=== PATIENT | male | born 1980 | race Caucasian/White ===

== ENCOUNTER 2016-07-01 08:46 | Emergency (ER) | payer SELFPAY ==
--- NOTE | 2016-07-01 09:50 | ER Document Report ---
HPI - HPI Patient complains to provider of: left arm pain Onset: Other - 3 weeks Onset/Duration: Persistent Quality of pain: Achy Severity: Severe Pain Level: 4 Context: Patient presents to the emergency department with left shoulder pain. Patient reports he started hurting approximately 3 weeks ago. He denies trauma. He reports increased pain when he just rests the arm leaving it hanging to his side. He he reports years ago he dislocated his shoulder fixed it himself and never followed up with anybody. He denies other symptoms such as fever vomiting diarrhea. He reports he has taken a couple of hydrocodone that his father gave him, as well as Motrin and it didn't help pain. He reports no pain when lifting the arm over his head only pain when he leaves it hanging by his side. Patient is right-hand dominant works at [employer]. Associated Symptoms: None Exacerbated by: Other - hanging to his side Relieved by: Denies Similar symptoms previously: No Recently seen / treated by doctor: No - DERM Skin Color: Normal Past Medical History - General Information source: Patient - Social History Smoking Status: Current Every Day Smoker Cigarette use (# per day): Yes Frequency of alcohol use: None Drug Abuse: None Occupation: [employer] Lives with: Family Family History: Malignancy - mom breast cancer Patient has suicidal ideation: No Patient has homicidal ideation: No - Medical History Medical History: Negative Renal/ Medical History: Denies: Hx Peritoneal Dialysis Surgical Hx: Negative Vertical Provider Document - CONSTITUTIONAL Agree With Documented VS: Yes Exam Limitations: No Limitations General Appearance: WD/WN, No Apparent Distress - INFECTION CONTROL TRAVEL OUTSIDE OF THE [place] IN LAST 30 DAYS: No - HEENT HEENT: Atraumatic, Normocephalic - NECK Neck: Normal Inspection, Supple. negative: Lymphadenopathy-Left, Lymphadenopathy-Right - RESPIRATORY Respiratory: Breath Sounds Normal, No Respiratory Distress O2 Sat by Pulse Oximetry: 98 - CARDIOVASCULAR Cardiovascular: Regular Rate, Regular Rhythm - MUSCULOSKELETAL/EXTREMETIES Musculoskeletal/Extremeties: MAEW, FROM, Tender - Left deltoid posterior area tender to palpation and no erythema no swelling no warmth, no obvious deformity. Good radial pulse brisk cap refill, full range of motion without complications or problems or c/o pain - NEURO Level of Consciousness: Awake, Alert, Appropriate Motor/Sensory: No Motor Deficit - DERM Integumentary: Warm, Dry Adult Front & Back Diagram: 1 - reports pain when arm is hanging by his side Course - Re-evaluation Re-evalutation: 07/01/16 Patient instructed on negative x-ray. Instructed on cleaning for 2 days only for comfort because he has pain when he hangs his arm to his side. He was also instructed on medications and importance of follow-up with orthopedics for evaluation. He verbalized understanding to all instructions. - Vital Signs Vital signs: Temp Pulse Resp BP Pulse Ox 98.4 F 98 20 121/92 H 98 07/01/16 08:58 07/01/16 08:58 07/01/16 08:58 07/01/16 08:58 07/01/16 08:58 - Diagnostic Test Radiology reviewed: Image reviewed, Reports reviewed - COMPLETED DATE/TIME: 07/01 9:40 am REASON FOR STUDY: pain COMPARISON: None. NUMBER OF VIEWS: Three views. TECHNIQUE: Internal rotation, external rotation, and Y view images acquired of the left shoulder. LIMITATIONS: None. FINDINGS: MINERALIZATION: Normal. BONES: No acute fracture or dislocation. No worrisome bone lesions. Small benign-appearing cyst in the humeral head probably not significant. JOINTS: No dislocation. VISUALIZED LUNGS AND RIBS: No pneumothorax. No rib fracture. SOFT TISSUES: No radiopaque foreign body. OTHER : No other significant finding. TECHNICAL DOCUMENTATION: JOB ID: [id number]- All Rights Reserved RAD/SHOULDER LEFT 2 OR MORE VIEWS IMPRESSION: No significant abnormalities involving the left shoulder. Procedures - Immobilization Left Arm Immobilizer type: Sling Performed by: PCT Post-Proc Neuro Vasc Exam: Unchanged from pre-exam Discharge - Discharge Clinical Impression: Pain in posterior left upper extremity Left shoulder pain Qualifiers: Chronicity: acute Qualified Code(s): M25.512 - Pain in left shoulder Condition: Stable Disposition: HOME, SELF-CARE Instructions: Use of Sart-Tmd-Oxnehjq Ibuprofen ([facility]), Ice Packs ([facility]), Oral Narcotic Medication ([facility]), Sling as Treatment ([facility]) Additional Instructions: *You have been evaluated for left shoulder upper arm pain *Maintain sling for two days only *Rest/Ice/Elevate the arm *Follow up with orthopedics within one week-call for an appointment *Take medication as prescribed- take ibuprofen for mild to moderate pain, take percocet for acute pain *Return to ED for worsening condition, changes, needs Prescriptions: Oxycodone HCl/Acetaminophen [Percocet 5-325 mg Tablet] 1 - 2 tab PO ASDIR PRN # 15 tablet PRN Reason: Referrals: [facility] [Provider Group] - Follow up in 3-5 days
[2016-07-01 10:50] VITALS: BP 119/69
== END 2016-07-01 10:52 | disposition home or self-care (01) ==
LOC: ER 08:46
DX: M79.602 Pain in left arm (principal); M25.512 Pain in left shoulder; F17.210 Nicotine dependence, cigarettes, uncomplicated
CPT/HCPCS: 99283

== ENCOUNTER 2016-09-09 15:32 | Emergency (ER) | payer SELFPAY ==
--- NOTE | 2016-09-09 17:24 | ER Document Report ---
ED GI/ - General Chief Complaint: Groin Injury Stated Complaint: ABSCESS Time Seen by Provider: 09/09/16 16:49 Notes: Patient is a 36-year-old male, current smoker, presents with 2 weeks of a right inguinal mass. He says the mass is painless and is not associated with exertion , defecation or urination. He denies testicular pain, penile discharge, fevers , night sweats, leg pain, numbness, tingling, nausea, vomiting, diarrhea or constipation. TRAVEL OUTSIDE OF THE [place] IN LAST 30 DAYS: No - Related Data Allergies/Adverse Reactions: No Known Allergies Allergy (Verified 09/09/16 16:47) Home Medications: Current Home Medications No Home Medications 09/09/16 [History] Past Medical History - General Information source: Patient - Social History Smoking Status: Current Every Day Smoker Chew tobacco use (# tins/day): No Frequency of alcohol use: None Drug Abuse: None Family History: Malignancy - mom breast cancer Patient has suicidal ideation: No Patient has homicidal ideation: No Renal/ Medical History: Denies: Hx Peritoneal Dialysis Surgical Hx: Negative - Immunizations Hx Diphtheria, Pertussis, Tetanus Vaccination: Yes Review of Systems - Review of Systems Notes: REVIEW OF SYSTEMS: CONSTITUTIONAL: -fevers, -chills EENT: -eye pain, -difficulty swallowing, -nasal congestion CARDIOVASCULAR:-chest pain, -syncope. RESPIRATORY: -cough, -SOB GASTROINTESTINAL: -abdominal pain, - nausea, -vomiting, -diarrhea GENITOURINARY: -dysuria, -hematuria MUSCULOSKELETAL: -back pain, -neck pain SKIN: -rash or skin lesions. HEMATOLOGIC: -easy bruising or bleeding. LYMPHATIC: +right inguinal swollen lymph node NEUROLOGICAL: -altered mental status or loss of consciousness, -headache, - neurologic symptoms PSYCHIATRIC: -anxiety, -depression. ALL OTHER SYSTEMS REVIEWED AND NEGATIVE. Physical Exam - Vital signs Vitals: Temp Pulse Resp BP Pulse Ox 98.3 F 83 20 128/74 H 97 09/09/16 15:50 09/09/16 15:50 09/09/16 15:50 09/09/16 15:50 09/09/16 15:50 - Notes Notes: PHYSICAL EXAMINATION: GENERAL: Well-appearing, well-nourished and in no acute distress. HEAD: Atraumatic, normocephalic. EYES: Pupils equal round and reactive to light, extraocular movements intact, sclera anicteric, conjunctiva are normal. ENT: nares patent, oropharynx clear without exudates. Moist mucous membranes. NECK: Normal range of motion, supple without lymphadenopathy LUNGS: Breath sounds clear to auscultation bilaterally and equal. No wheezes rales or rhonchi. HEART: Regular rate and rhythm without murmurs ABDOMEN: no inguinal hernia palpated, soft, nontender, normoactive bowel sounds. No guarding, no rebound. No masses appreciated. EXTREMITIES: Normal range of motion, no pitting or edema. No cyanosis. NEUROLOGICAL: Cranial nerves grossly intact. Normal speech, normal gait. Normal sensory and motor exams. PSYCH: Normal mood, normal affect. SKIN: Two 3 cm irregular, painless lymph nodes in right inguinal region Course - Re-evaluation Re-evalutation: Patient with nontender right inguinal lymph nodes. His white count is 6.7 and his ultrasound shows reactive vs. tumor of his adenopathy. Spoke to patient about concern for cancer and the need for follow-up for biopsy by surgery. He understands this. - Vital Signs Vital signs: Temp Pulse Resp BP Pulse Ox 98.4 F 70 16 130/67 H 99 09/09/16 18:24 09/09/16 18:24 09/09/16 18:24 09/09/16 18:24 09/09/16 18:24 - Laboratory Result Diagrams: 09/09/16 17:15 Laboratory results interpreted by me: 09/09/16 17:15 Plt Count 130 L Lymphocytes % 11.9 L Monocytes % 14.5 H - Diagnostic Test Radiology reviewed: Image reviewed, Reports reviewed Radiology results interpreted by me: Pelvic US: Extensive adenopathy in the right groin node with abnormal lymph nodes which are hyperemic. Reactive versus tumor. Discharge - Discharge Clinical Impression: Lymph node enlargement Condition: Stable Disposition: HOME, SELF-CARE Additional Instructions: You must follow-up with the surgeon for biopsy of your lymph nodes. It may be cancer. Bring your ultrasound results. Lymphadenopathy You have enlargement of lymph glands, called lymphadenopathy. Lymph glands filter tissue fluids. They help to fight infection. Most of the time, enlarged lymph glands are not serious. Lymph glands may react to a viral or bacterial infection by becoming swollen and painful. When the infection goes away, the glands shrink. Sometimes a lymph gland will remain enlarged for a long time after an infection. Occasionally, a lymph gland may be overwhelmed by infection and form an abscess. If an enlarged lymph gland has signs that are suspicious for tumor, the doctor will recommend a biopsy. A suspicious gland usually is NOT painful, grows very slowly, and is rock-hard to touch. See the doctor or return if there is increasing swelling and redness, high fever, difficulty breathing, or any other change for the worse. Referrals: KARI PHILLIPS MD [ACTIVE STAFF] - Follow up as needed
[2016-09-09 17:40] LABS: ABSOLUTE EOSINOPHILS # (AUTO) 0.1 10^3/uL (0.0-0.6); ABSOLUTE LYMPHOCYTES (AUTO) 0.8 10^3/uL (0.5-4.7); ABSOLUTE MONOCYTES (AUTO) 0.9 10^3/uL (0.1-1.4); ABSOLUTE NEUT (AUTO) 4.6 10^3/uL (1.7-8.2); BASOPHILS % (AUTO) 0.6 % (0-2); HEMATOCRIT 47.7 % (37.9-51.0); HEMOGLOBIN 16.5 g/dL (13.5-17.0); HGB HCT DIFFERENCE 1.8; LYMPHOCYTES % (AUTO) 11.9 % (13-45); MEAN CORPUSCULAR HEMOGLOBIN 31.9 pg (27.0-33.4); MEAN CORPUSCULAR HGB CONC 34.5 g/dL (32.0-36.0); MEAN CORPUSCULAR VOLUME 92 fl (80-97); MONOCYTES % (AUTO) 14.5 % (3-13); RED BLOOD COUNT 5.17 10^6/uL (4.35-5.55); RED CELL DISTRIBUTION WIDTH 12.6 % (11.5-14.0); WHITE BLOOD COUNT 6.3 10^3/uL (4.0-10.5)
--- NOTE | 2016-09-09 18:10 | RADIOLOGY REPORT (SQ) ---
EXAM DESCRIPTION: U/S NON-OB PELVIS LTD W/O DOP COMPLETED DATE/TIME: 09/09/2016 6:01 pm REASON FOR STUDY: right groin swelling, mass COMPARISON: None. TECHNIQUE: Dynamic and static grayscale images acquired of the localized site of clinical concern an d recorded on PACS. Additional selected color Doppler and spectral images recorded. SITE OF CONCERN: Right groin LIMITATIONS: None. FINDINGS: SKIN AND SUBCUTANEOUS TISSUES: Multiple large abnormal lymph nodes identified in the right groin. Extensive blood flow. Largest is greater than 4 cm. 2 cm node in the left groin. DEEP SOFT TISSUES/MUSCLES: No masses. No fluid collections. No edema. VASCULAR: No increased or decreased vascularity. No occlusions. OTHER: No other significant finding. IMPRESSION: Extensive adenopathy in the right groin node with abnormal lymph nodes which are hyperem ic. Reactive versus tumor. TECHNICAL DOCUMENTATION: JOB ID: [id number]- All Rights Reserved
[2016-09-09 18:30] VITALS: BP 130/67
== END 2016-09-09 18:25 | disposition home or self-care (01) ==
LOC: ER 15:32
DX: R59.9 Enlarged lymph nodes, unspecified (principal); S39.91XA Unspecified injury of abdomen, initial encounter; F17.200 Nicotine dependence, unspecified, uncomplicated; L02.214 Cutaneous abscess of groin; X58.XXXA Exposure to other specified factors, initial encounter
CPT/HCPCS: 36415; 76857; 85025; 99284

== ENCOUNTER 2016-09-12 09:29 | Emergency (ER) | payer MEDICAID ==
--- NOTE | 2016-09-12 10:13 | ER Document Report ---
ED Medical Screen (RME) - General Chief Complaint: Groin Pain Stated Complaint: POSSIBLE ABSCESS Time Seen by Provider: 09/12/16 10:11 Mode of Arrival: Ambulatory Information source: Patient Notes: 36-year-old male presents to ED for swelling lymph nodes in the right groin. The previously had ultrasound and blood work done and was told he had lymphadenopathy in the right groin and was to follow-up with the surgeon. He called the surgery for follow-up appointment and he has an appointment for September 24. He said before the pain was not bad but the pain is getting progressively worse and that is why he came back in. I have greeted and performed a rapid initial assessment of this patient. A comprehensive ED assessment and evaluation of the patient, analysis of test results and completion of medical decision making process will be conducted by an additional ED providers. TRAVEL OUTSIDE OF THE [place] IN LAST 30 DAYS: No - Related Data Allergies/Adverse Reactions: No Known Allergies Allergy (Verified 09/12/16 09:34) Past Medical History Renal/ Medical History: Denies: Hx Peritoneal Dialysis - Immunizations Hx Diphtheria, Pertussis, Tetanus Vaccination: Yes Physical Exam - Vital signs Vitals: Temp Pulse Resp BP Pulse Ox 98.0 F 78 16 150/75 H 99 09/12/16 09:34 09/12/16 09:34 09/12/16 09:34 09/12/16 09:34 09/12/16 09:34 Course - Vital Signs Vital signs: Temp Pulse Resp BP Pulse Ox 98.0 F 78 16 150/75 H 99 09/12/16 09:34 09/12/16 09:34 09/12/16 09:34 09/12/16 09:34 09/12/16 09:34
[2016-09-12] MEDS ORDERED: TRAMADOL HCL 50 MG TABLET PO ONE (10:28)
[2016-09-12] MEDS ORDERED: ACETAMINOPHEN 325 MG TABLET PO ONE (10:28)
--- NOTE | 2016-09-12 10:40 | ER Document Report ---
ED GI/ - General Chief Complaint: Groin Pain Stated Complaint: POSSIBLE ABSCESS Time Seen by Provider: 09/12/16 10:11 Mode of Arrival: Ambulatory Notes: Patient is a 36 year old male who presents to the ED complaining of sudden onset right groin pain. He has been evaluated in the ED recently for painless right groin adenopathy that is concerning for possible malignancy and was d/c'd to follow up with surgery for biopsy. He states he has an appointment on 09/24 with surgery. He states that he was pain free up until last night when he was sleeping and was woken by sharp stabbing pain in his groin. He states it improves with massage. He admits to pain with walking and worst at hip extension. Pain within the groin and radiates down his thigh. He denies any urinary symptoms, testicular pain, swelling. Denies night sweats, weight loss, n /v, d/c, abdominal pain. He has not been sexually active in at least 2 years Denies PMH daily tobacco user No PCP TRAVEL OUTSIDE OF THE [place] IN LAST 30 DAYS: No - Related Data Allergies/Adverse Reactions: No Known Allergies Allergy (Verified 09/12/16 09:34) Past Medical History - General Information source: Patient - Social History Smoking Status: Current Every Day Smoker Chew tobacco use (# tins/day): No Frequency of alcohol use: None Drug Abuse: None Family History: Malignancy - mom breast cancer Patient has suicidal ideation: No Patient has homicidal ideation: No Renal/ Medical History: Denies: Hx Peritoneal Dialysis Surgical Hx: Negative - Immunizations Hx Diphtheria, Pertussis, Tetanus Vaccination: Yes Review of Systems - Review of Systems Constitutional: No symptoms reported Skin: See HPI Hematologic/Lymphatic: See HPI -: Yes All other systems reviewed and negative Physical Exam - Vital signs Vitals: Temp Pulse Resp BP Pulse Ox 98.0 F 78 16 150/75 H 99 09/12/16 09:34 09/12/16 09:34 09/12/16 09:34 09/12/16 09:34 09/12/16 09:34 - General General appearance: Appears well, Alert In distress: Mild - Cardiovascular Pulses: Normal: Radial, Femoral Normal capillary refill: Yes - Abdominal Inspection: Normal Distension: No distension Bowel sounds: Normal Tenderness: Nontender Organomegaly: No organomegaly - Genitourinary Inspection: Normal Tenderness: Other - tenderness to palpation of right groin where there is notable swelling. Two palpable lymph nodes, firm. The smaller of the two measuring approx 2cm, nontender and the larger is difficult to assess 2/2 patient is very tender and guarding but firm, non mobile. No: Lesions, Testicle tender, Epididymis tender - Extremities General upper extremity: Normal inspection, Nontender, Normal color, Normal ROM , Normal strength, Normal temperature General lower extremity: Normal inspection, Nontender, Normal color, Normal ROM , Normal strength, Normal temperature, Normal weight bearing. No: Saskia's sign - Neurological Neuro grossly intact: Yes Motor strength normal: LUE, RUE, LLE, RLE Sensory: Normal - Skin Location of irregularity: Other - right groin Character of irregularity: negative: Erythematous Irregularity with: Swelling, Tenderness, Other - no fluctuance,. negative: Warmth, Induration, Inflammation Course - Re-evaluation Re-evalutation: 09/12/16 10:52 Patient is a 36 year old male who is hemodynamically stable, no acute distress and afebrile. Labs within normal limits with mild elevation of CRP. Evidence of leukocytosis. Urinalysis negative for evidence of UTI. Patient given for complaining gonorrhea. Our lab is not able to send LGV or h ducreyi. patient to follow up with surgeon as scheduled and establish care with PCP at [facility]. Patient agreeable with plan - Vital Signs Vital signs: Temp Pulse Resp BP Pulse Ox 98.1 F 70 16 148/72 H 100 09/12/16 13:25 09/12/16 13:25 09/12/16 13:25 09/12/16 13:25 09/12/16 13:25 - Laboratory Result Diagrams: 09/12/16 10:30 Laboratory results interpreted by me: 09/12/16 09/12/16 09/12/16 10:30 10:30 10:45 Plt Count 122 L C-Reactive Protein 13.0 H Urine Urobilinogen 2.0 H Discharge - Discharge Clinical Impression: Inguinal lymphadenopathy Condition: Good Disposition: HOME, SELF-CARE Instructions: Lymphadenopathy (OM) Additional Instructions: You must follow-up with the surgeon for biopsy of your lymph nodes. It may be cancer. Bring your ultrasound results. Please make an appointment with [facility] within a week to schedule a new patient visit and to establish care to follow with your biopsy results Prescriptions: Hydrocodone/Acetaminophen [[place]umma[place]id 5-325 mg Tablet] 1 tab PO Q6HP PRN #15 tablet PRN Reason: Ibuprofen [Motrin 800 mg Tablet] 800 mg PO Q8H PRN #30 tab PRN Reason: Forms: Elevated Blood Pressure Referrals: [facility] [Provider Group] - Follow up in 1 week KARI PHILLIPS MD [ACTIVE STAFF] - Follow up as needed (As scheduled)
[2016-09-12 10:59] LABS: ABSOLUTE EOSINOPHILS # (AUTO) 0.2 10^3/uL (0.0-0.6); ABSOLUTE MONOCYTES (AUTO) 0.7 10^3/uL (0.1-1.4); ABSOLUTE NEUT (AUTO) 4.1 10^3/uL (1.7-8.2); BASOPHILS % (AUTO) 0.6 % (0-2); EOSINOPHILS % (AUTO) 2.6 % (0-6); HEMATOCRIT 45.9 % (37.9-51.0); HEMOGLOBIN 15.4 g/dL (13.5-17.0); HGB HCT DIFFERENCE 0.3; LYMPHOCYTES % (AUTO) 16.4 % (13-45); MEAN CORPUSCULAR HGB CONC 33.4 g/dL (32.0-36.0); MEAN CORPUSCULAR VOLUME 93 fl (80-97); MONOCYTES % (AUTO) 12.2 % (3-13); RED BLOOD COUNT 4.96 10^6/uL (4.35-5.55); RED CELL DISTRIBUTION WIDTH 12.8 % (11.5-14.0); SEGMENTED NEUTROPHILS % (AUTO) 68.2 % (42-78)
[2016-09-12 11:08] LABS: APPEARANCE,URINE CLEAR; BILIRUBIN,URINE NEGATIVE (NEGATIVE); GLUCOSE, URINE NEGATIVE (NEGATIVE); KETONES,URINE NEGATIVE (NEGATIVE); LEUKOCYTE ESTERASE,URINE NEGATIVE (NEGATIVE); NITRITE,URINE NEGATIVE (NEGATIVE); PROTEIN,URINE NEGATIVE (NEGATIVE); URINE SPECIFIC GRAVITY 1.028
[2016-09-12 11:35] LABS: ERYTHROCYTE SEDIMENTATION RATE 10 mm/hr (0-15)
--- NOTE | 2016-09-12 12:41 | RADIOLOGY REPORT (SQ) ---
EXAM DESCRIPTION: U/S SCROTUM W/DOPPLER COMPLETED DATE/TIME: 09/12/2016 12:08 pm REASON FOR STUDY: right groin pain and tenderness of lymphadenopathy COMPARISON: 09/09/2016 limited soft tissue ultrasound. TECHNIQUE: Static and realtime morris scale imaging of the scrotum and testes. Selected color Doppler and spectral images recorded to document blood flow. LIMITATIONS: None. FINDINGS: RIGHT: TESTICLE: No solid mass. Normal blood flow. There is a hypoechoic well-circumscribed 7 mm intra mick ticular superficial nodule with suggestion of internal debris. Probably cystic, no Doppler detectabl e flow within. EPIDIDYMIS: Normal. HYDROCELE OR VARICOCELE: No. HERNIA OR EXTRA-TESTICULAR MASS: No. OTHER: No other significant finding. LEFT: TESTICLE: Normal size. Normal echotexture. Normal blood flow. No mass. EPIDIDYMIS: 6 mm epididymis cyst, otherwise normal. HYDROCELE OR VARICOCELE: No. HERNIA OR EXTRA-TESTICULAR MASS: No. OTHER: No other significant finding. As seen on recent limited groin ultrasound, there are enlarged lymph nodes ight. Small nodes are als o noted on the left, probably normal. IMPRESSION: 1. Known right inguinal adenopathy. Suspicious. Potentially related to lymphoma or oth er neoplasm. 2. No testicular torsion or definite solid mass. Suspect a mildly complicated debris containing cyst in the right testis. Clinical and imaging surveillance followup may be warranted for this lesion. TECHNICAL DOCUMENTATION: JOB ID: [id number]- All Rights Reserved
[2016-09-12 12:42] LABS: CHLAM PCR NOT DETECTED (NOT DETECT)
[2016-09-12 13:29] VITALS: BP 148/72
== END 2016-09-12 13:20 | disposition home or self-care (01) ==
LOC: ER 09:29
DX: R59.0 Localized enlarged lymph nodes (principal); F17.200 Nicotine dependence, unspecified, uncomplicated
CPT/HCPCS: 36415; 76870; 81001; 85025; 85652; 86140; 87491; 87591; 93976; 99284

== ENCOUNTER → 2016-12-06 | Outpatient (CLI) | payer MEDICAID ==
--- NOTE | 2016-12-07 18:17 | RADIOLOGY REPORT (SQ) ---
EXAM DESCRIPTION: PET CT SKULL/THIGH COMPLETED DATE/TIME: 12/06/2016 11:26 pm REASON FOR STUDY: HODGKIN LYMPHOMA C81.94 HODGKIN LYMPHOMA, UNSP, LYMPH NODES OF AXILLA AND UPP COMPARISON: No previous RADIONUCLIDE AND DOSE: 12.4 mCi F18 FDG The route of agent administration: Intravenous FASTING BLOOD SUGAR: 100 mg/dl CONTRAST TYPE AND DOSE: No CT contrast given. TECHNIQUE: Blood glucose level was verified. Above dose of FDG was injected intravenously. 2-D seg mented attenuation correction images were obtained from the base of the skull to the midthighs. Nonc ontrast CT images were obtained for attenuation correction and fusion with emission images. CT image s were performed without oral or intravenous contrast and are not sensitive for parenchymal lesions. A series of overlapping emission PET images were obtained. [facility] by the radiologist. Images stored on PACS. LIMITATIONS: None. FINDINGS: HEAD AND NECK: No areas of abnormal metabolic activity in the soft tissues of the head and neck. CHEST: Subcentimeter left supraclavicular lymph node with SUV 2.4. 1 cm sub- carinal lymph node with SUV 2.3. Non metabolic less than 1 cm short axis bilateral axillary lymph nodes. ABDOMEN AND PELVIS: There is extensive retroperitoneal adenopathy, with multiple mesenteric and retro peritoneal nodes extending from about the level of the celiac artery down through the right external iliac and inguinal regions. Index lesions are as follows: 3.2 x 2.2 cm left para-aortic conglomeration of nodes SUV 5.2 2.6 x 2 cm lymph node at the internal right inguinal ring SUV 7 Right inguinal lymph node 4.3 x 2.3 cm SUV 5.5. Right inguinal lymph node 2.6 x 2.1 cm SUV 7.5. PROXIMAL LOWER EXTREMITIES: No areas of abnormal metabolic activity in the soft tissues of the lower extremities. BONES: No abnormal metabolic activity in the visualized skeleton. ADDITIONAL CT FINDINGS: No additional significant findings on the noncontrast CT images. No splenome radha. OTHER: Blood pool activity 1.5 SUV. Liver activity 1.7 SUV IMPRESSION: Adenopathy from Hodgkin's lymphoma as above. TECHNICAL DOCUMENTATION: JOB ID: [id number]- All Rights Reserved
== END ==
LOC: RAD 21:27
PROVIDERS: ATTEND Internal Medicine
DX: C81.94 Hodgkin lymphoma, unspecified, lymph nodes of axilla and upper limb (principal)
CPT/HCPCS: 78815; A9552

== ENCOUNTER 2016-12-07 18:52 | Emergency (ER) | payer MEDICAID ==
[2016-12-07 19:30] VITALS: BP 113/66
== END 2016-12-08 01:02 | disposition left against medical advice (07) ==
LOC: ER 18:52
DX: Z53.21 Procedure and treatment not carried out due to patient leaving prior to being seen by health care provider (principal)

== ENCOUNTER 2016-12-16 05:35 | Day surgery (SDC) | payer MEDICAID ==
[2016-12-14 10:00] LABS: ABSOLUTE EOSINOPHILS # (AUTO) 0.1 10^3/uL (0.0-0.6); ABSOLUTE LYMPHOCYTES (AUTO) 0.7 10^3/uL (0.5-4.7); ABSOLUTE NEUT (AUTO) 4.5 10^3/uL (1.7-8.2); BASOPHILS % (AUTO) 0.6 % (0-2); EOSINOPHILS % (AUTO) 1.6 % (0-6); HEMATOCRIT 37.1 % (37.9-51.0); HGB HCT DIFFERENCE 1.9; LYMPHOCYTES % (AUTO) 10.6 % (13-45); MEAN CORPUSCULAR HEMOGLOBIN 30.8 pg (27.0-33.4); MEAN CORPUSCULAR VOLUME 88 fl (80-97); MONOCYTES % (AUTO) 15.7 % (3-13); RED BLOOD COUNT 4.22 10^6/uL (4.35-5.55); RED CELL DISTRIBUTION WIDTH 12.9 % (11.5-14.0); SEGMENTED NEUTROPHILS % (AUTO) 71.5 % (42-78); WHITE BLOOD COUNT 6.3 10^3/uL (4.0-10.5)
[~2016-12-16 05:35] MED LIST: CEFAZOLIN 1 GM/D5W RTU 1 GM/50 ML RTUPB IV PRN; LACTATED RINGERS 1000 ML IV PRN; LIDOCAINE 0.5% INJ-PF (5 MG/ML) 50 ML SDV SUBCUT PRN
[2016-12-16] MEDS ORDERED: LIDOCAINE 1%/EPINEPHRINE INJ 20 ML VIAL ONE (06:40)
[2016-12-16] MEDS ORDERED: FENTANYL CITRATE INJ/PF 100 MCG/2 ML AMPUL ONE (06:47)
[2016-12-16] MEDS ORDERED: ONDANSETRON HCL INJ/PF 4 MG/2 ML SDV ONE (06:48)
[2016-12-16] MEDS ORDERED: PROPOFOL INJ 200 MG/20 ML VIAL IV ONE (06:48)
[2016-12-16] MEDS ORDERED: MIDAZOLAM 2 MG/2 ML INJ ONE (06:48)
[2016-12-16] MEDS ORDERED: FENTANYL CITRATE INJ/PF 100 MCG/2 ML AMPUL IV PRN ×3 (07:37)
[2016-12-16] MEDS ORDERED: PROMETHAZINE HCL INJ 25 MG/1 ML VIAL IV PRN (07:37)
[2016-12-16] MEDS ORDERED: MORPHINE SULFATE 10 MG/ML INJ IV PRN (07:37)
[2016-12-16] MEDS ORDERED: DIPHENHYDRAMINE HCL 50 MG/ML VIAL IV PRN (07:37)
[2016-12-16] MEDS ORDERED: MEPERIDINE HCL/PF INJ 25 MG/1 ML DISP.SYRIN IV PRN (07:37)
[2016-12-16] MEDS ORDERED: MICROFIBRILLAR COLLAGEN 1 GM PACK ONE (08:07)
--- NOTE | 2016-12-16 08:20 | Operative Report ---
Operative Report DATE OF SURGERY: 12/16/16 PREOPERATIVE DIAGNOSIS: Hodgkin's lymphoma POSTOPERATIVE DIAGNOSIS: Same OPERATION: Open excisional right groin lymph node biopsy SURGEON: KARI PHILLIPS 1ST BOTANICAL TECHNICAL OFFICER: MAHAMED COBB ANESTHESIA: LMAC TISSUE REMOVED OR ALTERED: 1 enlarged right groin lymph node COMPLICATIONS: None ESTIMATED BLOOD LOSS: Scant INTRAOPERATIVE FINDINGS: See below PROCEDURE: The patient was seen in the preop holding area where the right groin was marked. The patient then taken to the operating room where LMAC anesthesia was induced. Right groin was prepped and draped in sterile fashion. Surgical plan and surgical timeout conducted. Skin was anesthetized with quarter percent Marcaine. Approximately 3-1/2 cm long diagonally oriented incision was made over the right groin. Intraoperative ultrasonography was used to confirm the lateralmost enlarged lymph node which is approximately 4 cm in length. The pseudocapsule around the lymph node was opened with electrocautery. Using a combination of blunt and electrocautery dissection, the lymph node was excised in its entirety. Unfortunately this lymph node was essentially bonded to the lymph node just below it so we did have to use cautery to come across some of the lymph node parenchyma to from the second node. We cauterized the surface of the parenchyma exposed on the second node so as to minimize the risk of lymphatic leakage. Lymph node was passed to pathology fresh as right groin lymph node. We checked the recesses of the wound for bleeding there was none. Avitene was placed in the recesses of the wound, the wound closed with 3-0 Vicryl benzoin Steri-Strips and a compression dressing applied. He tolerated the procedure well, taken recovery in stable condition. The physician assistant spa director, Ms. Wilburn, provided assistance during this case by: Assisting, retracting tissue, instillation of local anesthesia and closure of skin incisions.
--- NOTE | 2016-12-16 08:30 | PDOC DISCHARGE SUMMARY ---
Discharge Summary (SDC) - Discharge Final Diagnosis: Lymphoma Date of Surgery: 12/16/16 Discharge Date: 12/16/16 Condition: Stable Treatment or Instructions: Wound Care: Leave pressure dressing on for 48 hours. Pressure dressing includes the 4x4 and tape. Underneath the tape and the 4x4s are steri strips which may remain intact until your follow up appointment. You may shower in 48 hours once you remove your outer dressing. The steri strips may get wet with warm water and soap. Do not scrub the area. If you notice swelling, foul-smelling drainage, or redness around the incision, call the clinic. Follow up appointment will be scheduled with Dr. Rocha on 7-10 days. Call clinic with any questions or concerns. [facility]: [phone] Prescriptions: Ketorolac Tromethamine [Toradol 10 mg Tablet] 10 mg PO Q6HP PRN #25 tablet PRN Reason: Discharge Diet: As Tolerated - Avoid exercise until follow up appointment. Discharge Activity: Other - Avoid exercise until follow up appointment Report the Following to Your Physician Immediately: Increase in Pain, Fever over 101 Degrees, Unusual Bleeding, Swelling, Warmth, Increased Soreness
[2016-12-16] MEDS ORDERED: OXYCODONE-ACETAMINOPHEN 5-325 MG TABLET PO PRN (08:31)
[2016-12-16] MEDS ORDERED: ONDANSETRON HCL INJ/PF 4 MG/2 ML SDV IV PRN (08:31)
[2016-12-16 10:24] VITALS: BP 122/78
== END 2016-12-16 09:50 | disposition home or self-care (01) ==
LOC: OROUT 05:35
PROVIDERS: ATTEND Surgery
PROC: 07BH0ZX Excision of Right Inguinal Lymphatic, Open Approach, Diagnostic (ICD-10-PCS; principal; 2016-12-16 07:30)
DX: C81.95 Hodgkin lymphoma, unspecified, lymph nodes of inguinal region and lower limb (principal); F17.210 Nicotine dependence, cigarettes, uncomplicated; Z80.3 Family history of malignant neoplasm of breast
CPT/HCPCS: 36415; 88185 ×15; 88184; 85025; 88233; 88262; 88305 ×2; 38500; J2250; J0690; J3010; J3490 ×2; J2405; J2704; 400

== ENCOUNTER 2016-12-30 11:05 | Day surgery (SDC) | payer MEDICAID ==
[~2016-12-30 11:05] MED LIST changes: +ACETAMINOPHEN 325 MG TABLET PO PRN; +FENTANYL CITRATE INJ/PF 100 MCG/2 ML AMPUL ONE; -LACTATED RINGERS 1000 ML IV PRN; -LIDOCAINE 0.5% INJ-PF (5 MG/ML) 50 ML SDV SUBCUT PRN; +LIDOCAINE 1%/EPINEPHRINE INJ 20 ML VIAL ONE; +LIDOCAINE 2% INJ-PF (20 MG/ML) 10 ML AMPUL ONE; +MIDAZOLAM 2 MG/2 ML INJ ONE; +PROPOFOL INJ 200 MG/20 ML VIAL IV ONE; +RINGERS SOLUTION,LACTATED 1,000 ML IV PRN
[2016-12-30] MEDS ORDERED: PROMETHAZINE HCL INJ 25 MG/1 ML VIAL IV PRN ×2 (11:45)
[2016-12-30] MEDS ORDERED: MEPERIDINE HCL/PF INJ 25 MG/1 ML DISP.SYRIN IV PRN (11:45)
[2016-12-30] MEDS ORDERED: MORPHINE SULFATE 10 MG/ML INJ IV PRN (11:45)
[2016-12-30] MEDS ORDERED: DIPHENHYDRAMINE HCL 50 MG/ML VIAL IV PRN (11:45)
[2016-12-30] MEDS ORDERED: OXYCODONE-ACETAMINOPHEN 5-325 MG TABLET PO PRN ×2 (11:45)
[2016-12-30] MEDS ORDERED: FENTANYL CITRATE INJ/PF 100 MCG/2 ML AMPUL IV PRN ×3 (11:45)
--- NOTE | 2016-12-30 12:27 | Operative Report ---
Operative Report DATE OF SURGERY: 12/30/16 PREOPERATIVE DIAGNOSIS: Large B-cell lymphoma POSTOPERATIVE DIAGNOSIS: Same OPERATION: 1. Focused ultrasound of the right neck. 2. Placement of single chamber right subclavian [id number] into right internal jugular vein. 3. Interpretation of intraoperative fluoroscopy SURGEON: KARI PHILLIPS 1ST KIL[employer]ER HELPER: MAHAMED COBB ANESTHESIA: LMAC TISSUE REMOVED OR ALTERED: None COMPLICATIONS: None ESTIMATED BLOOD LOSS: Scant INTRAOPERATIVE FINDINGS: See below PROCEDURE: Patient is seen in the preop holding area the right neck was marked. He was then taken to the operating room where LMAC anesthesia was induced. The right neck chest wall were prepped and draped in sterile fashion. Surgical plan surgical timeout were conducted. Using ultrasound real time as a guide, the skin was anesthetized over the confluence of the 2 heads of the sternocleidomastoid muscle. A jen was made in the skin with the 11 blade, and micro needle and wire were threaded into the right internal jugular vein using ultrasound guidance. Suitable site for placement of the port was chosen in the right subclavian position. The skin was anesthetized with lidocaine plain. Approximately 2-1/2 cm incision made with the knife and a deep subcutaneous port pocket developed large enough to accommodate a port. This was accomplished with blunt dissection or cautery. The catheter was was then tunneled between the 2 incisions trimmed, and secured to the port. The micro needle was switched over to a conventional 0.030 inch guidewire, then the 8 [place] dilator introducer sheath was threaded over the wire all all under fluoroscopic guidance. There was no kinking of the wire and no resistance. There was no evidence of ectopy. The wire and dilator were removed, and the single lumen catheter threaded into the sheath of the sheath removed leaving the cath in good position. Under fluoroscopic guidance, the catheter is in the superior vena cava right atrial junction. There is no evidence of ectopy. There was no evidence of kinking of the catheter at the level of the neck. Using a So needle, the chamber was aspirated satisfactorily and flushed with dilute heparinized saline. We felt the operation was. Sponge and needle counts are correct. Wounds were closed with 3-0 Vicryl benzoin and Steri-Strips. Patient tolerated procedure well, taken to the recovery room in stable condition. The physician itinerant teacher assistant, Ms. Wilburn, provided assistance during this case by: Assisting , retracting tissue, instillation of local anesthesia and closure of skin incisions. Chest x-ray pending at time dictation.
--- NOTE | 2016-12-30 12:31 | PDOC DISCHARGE SUMMARY ---
Discharge Summary (SDC) - Discharge Final Diagnosis: Lymphoma Date of Surgery: 12/30/16 Discharge Date: 12/30/16 Condition: Stable Treatment or Instructions: Follow up wound care: Do not shower for 48 hours. Keep area clean and dry. Leave steri strips intact until follow up appointment. Steri strips may get wet. Do not scrub. Pat dry. Call clinic with any questions or if area becomes swollen, red, foul-smelling drainage or difficulty breathing. You may take Toradol 10mg one pill every six hours as needed for pain. Follow up appointment in 10-14 days at [facility] with Kirstin Lucas PA-C [facility]: [phone] Prescriptions: Ketorolac Tromethamine [Toradol 10 mg Tablet] 10 mg PO Q6HP PRN #15 tablet PRN Reason: Discharge Diet: As Tolerated Discharge Activity: Activity As Tolerated Report the Following to Your Physician Immediately: Shortness of Breath, Nausea , Vomiting, Fever over 101 Degrees, Unusual Bleeding, Redness, Swelling, Warmth , Drainage-Foul Smelling
--- NOTE | 2016-12-30 13:28 | RADIOLOGY REPORT (SQ) ---
EXAM DESCRIPTION: CHEST SINGLE VIEW COMPLETED DATE/TIME: 12/30/2016 1:15 pm REASON FOR STUDY: port placement COMPARISON: None. EXAM PARAMETERS: NUMBER OF VIEWS: One view. TECHNIQUE: Single frontal radiographic view of the chest acquired. RADIATION DOSE: NA LIMITATIONS: None. FINDINGS: LUNGS AND PLEURA: No opacities, masses or pneumothorax. No pleural effusion. MEDIASTINUM AND HILAR STRUCTURES: No masses. Contour normal. HEART AND VASCULAR STRUCTURES: Heart normal in size. Normal vasculature. BONES: No acute findings. HARDWARE: There is an injection port on the right. The tip of the catheter is in the superior vena c karla. OTHER: No other significant finding. IMPRESSION: Injection port placement. TECHNICAL DOCUMENTATION: JOB ID: [id number]
--- NOTE | 2016-12-30 13:35 | RADIOLOGY REPORT (SQ) ---
EXAM DESCRIPTION: FLUORO/CV PLACEMENT COMPLETED DATE/TIME: 12/30/2016 12:40 pm REASON FOR STUDY: PORTACATH PLCMT RT SIDE ASSISTED WITH FLUORO IN OR R59.1 GENERALIZED ENLARGED LYM PH NODES COMPARISON: PET-CT 12/06/2016 FLUOROSCOPY TIME: LESS THAN 5 SECONDS 5 series of digital images saved to PACS. TECHNIQUE: Intra-operative images acquired during surgical procedure to evaluate progress. NUMBER OF IMAGES: Cine fluoroscopic images. LIMITATIONS: None. FINDINGS: Intra procedural imaging and fluoro during right-sided permanent central line placement IMPRESSION: Intra procedural imaging and fluoro COMMENT: Quality ID 145: Final reports for procedures using fluoroscopy that document radiation exp osure indices, or exposure time and number of fluorographic images (if radiation exposure indices are not available) Please consult full operative report of the attending physician for description of the procedure. TECHNICAL DOCUMENTATION: JOB ID: [id number] [employer]- All Rights Reserved
[2016-12-30 14:25] VITALS: BP 117/72
== END 2016-12-30 14:25 | disposition home or self-care (01) ==
LOC: OROUT 11:05
PROVIDERS: ATTEND Surgery
PROC: 05HM33Z Insertion of Infusion Device into Right Internal Jugular Vein, Percutaneous Approach (ICD-10-PCS; principal; 2016-12-30 15:00)
DX: C83.35 Diffuse large B-cell lymphoma, lymph nodes of inguinal region and lower limb (principal); F17.210 Nicotine dependence, cigarettes, uncomplicated; Z80.3 Family history of malignant neoplasm of breast
CPT/HCPCS: 36561; 71010; 77001; C1752; C1788; J2250; J0690; J3010; J3490 ×2; J2704; J1642; 532

== ENCOUNTER → 2017-03-03 | Outpatient (CLI) | payer MEDICAID ==
--- NOTE | 2017-03-03 10:01 | RADIOLOGY REPORT (SQ) ---
EXAM DESCRIPTION: CT CHEST WITH COMPLETED DATE/TIME: 03/03/2017 8:33 am REASON FOR STUDY: DIFFUSE LARGE B CELL LYMPHOMA, INTRA ABDOMINAL LYMPH NODES C83.33 DIFFUSE LARGE B -CELL LYMPHOMA, INTRA-ABDOMINAL LYMPH COMPARISON: None. Correlation: PET-CT 12/06/2016. TECHNIQUE: CT scan of the chest performed using helical scanning technique with dynamic intravenous contrast injection. Images reviewed with lung, soft tissue and bone windows. Reconstructed coronal and sagittal MPR images reviewed. All images stored on PACS. All CT scanners at this facility use dose modulation, iterative reconstruction, and/or weight based d osing when appropriate to reduce radiation dose to as low as reasonably achievable (ALARA). [facility]: Dose Right [facility]: CareDose [facility]: Dose Right [facility]: Teradose 4D [facility]: [employer] CONTRAST TYPE AND DOSE: See combined report same date. RENAL FUNCTION: See combined report same date. RADIATION DOSE: . LIMITATIONS: None. FINDINGS: LUNGS AND PLEURA: Paraseptal emphysema upper lobes. No suspicious nodules. HILAR AND MEDIASTINAL STRUCTURES: No identified masses or abnormal nodes. HEART AND VASCULAR STRUCTURES: No aneurysm or dissection. No central pulmonary emboli. No pericardi al effusion. HARDWARE: None in the chest. UPPER ABDOMEN: See separate report of the CT of the abdomen. THYROID AND OTHER SOFT TISSUES: No masses. No adenopathy. BONES: No significant finding. OTHER: Right-sided port with tip in the SVC. IMPRESSION: Favorable response to therapy. Resolved adenopathy. TECHNICAL DOCUMENTATION: JOB ID: [id number] Quality ID # 436: Final reports with documentation of one or more dose reduction techniques (e.g., Au tomated exposure control, adjustment of the mA and/or kV according to patient size, use of iterative reconstruction technique) 2010 [employer]- All Rights Reserved
--- NOTE | 2017-03-03 11:04 | RADIOLOGY REPORT (SQ) ---
EXAM DESCRIPTION: CT ABD/PELVIS WITH IV ORAL COMPLETED DATE/TIME: 03/03/2017 8:33 am REASON FOR STUDY: DIFFUSE LARGE B CELL LYMPHOMA, INTRA ABDOMINAL LYMPH NODES C83.33 DIFFUSE LARGE B -CELL LYMPHOMA, INTRA-ABDOMINAL LYMPH COMPARISON: None. Correlation: PET-CT 12/06/2016 TECHNIQUE: CT scan of the abdomen and pelvis performed using helical scanning technique with dynamic intravenous contrast injection. No oral contrast. Images reviewed with lung, soft tissue, and bone windows. Reconstructed coronal and sagittal MPR images reviewed. Delayed images for evaluation of the urinary system also acquired. All images stored on PACS. All CT scanners at this facility use dose modulation, iterative reconstruction, and/or weight based d osing when appropriate to reduce radiation dose to as low as reasonably achievable (ALARA). [facility]: Dose Right [facility]: CareDose [facility]: Dose Right [facility]: Teradose 4D [facility]: [employer] CONTRAST TYPE AND DOSE: contrast/concentration: Isovue 370.00 mg/ml; Total Contrast Delivered: 92.0 ml; Total Saline Delivered: 70.0 ml RENAL FUNCTION: BUN 10 creatinine 0.7 RADIATION DOSE: CT Rad equipment meets quality standard of care and radiation dose reduction techniq ues were employed. CTDIvol: 5.4 - 5.5 mGy. DLP: 839 mGy-cm.. LIMITATIONS: None. FINDINGS: LOWER CHEST: See separate report of the CT of the chest. LIVER: Normal size. No masses. No dilated ducts. SPLEEN: Normal size. No focal lesions. PANCREAS: No masses. No significant calcifications. No adjacent inflammation or peripancreatic fluid collections. Pancreatic duct not dilated. GALLBLADDER: No identified stones by CT criteria. No inflammatory changes to suggest cholecystitis. ADRENAL GLANDS: No significant masses or asymmetry. RIGHT KIDNEY AND URETER: No solid masses. No significant calcifications. No hydronephrosis or hyd roureter. LEFT KIDNEY AND URETER: No solid masses. No significant calcifications. No hydronephrosis or hydr oureter. AORTA AND VESSELS: No aneurysm. No dissection. Renal arteries, SMA, celiac without stenosis. RETROPERITONEUM: No retroperitoneal adenopathy, hemorrhage or masses. BOWEL AND PERITONEAL CAVITY: No masses or inflammatory changes. No free fluid or peritoneal masses. APPENDIX: Not visualized. PELVIS: Marked improvement in inguinal adenopathy. Subcutaneous 2.5 x 4.0 cm lesion right groin pilar uring 6 HU centrally. This is presumably related to prior biopsy. Scattered bilateral inguinal node s measuring up to about a cm in short axis to right of midline, markedly improved. ABDOMINAL WALL: No masses. No hernias. BONES: No significant or acute findings. OTHER: No other significant finding. IMPRESSION: Favorable response to therapy. Residual small inguinal nodes. TECHNICAL DOCUMENTATION: JOB ID: [id number] Quality ID # 436: Final reports with documentation of one or more dose reduction techniques (e.g., Au tomated exposure control, adjustment of the mA and/or kV according to patient size, use of iterative reconstruction technique) 2010 [email or web address]- All Rights Reserved
== END ==
LOC: RAD 07:48
PROVIDERS: ATTEND Internal Medicine
DX: C83.33 Diffuse large B-cell lymphoma, intra-abdominal lymph nodes (principal)
CPT/HCPCS: 71260; 74177

== ENCOUNTER → 2017-05-23 | Outpatient (CLI) | payer MEDICAID ==
--- NOTE | 2017-05-24 09:37 | RADIOLOGY REPORT (SQ) ---
EXAM DESCRIPTION: PET CT SKULL/THIGH COMPLETED DATE/TIME: 05/23/2017 6:31 pm REASON FOR STUDY: LYMPHOMA C83.33 DIFFUSE LARGE B-CELL LYMPHOMA, INTRA-ABDOMINAL LYMPH COMPARISON: 12/06/2016. RADIONUCLIDE AND DOSE: 10.0 mCi F18 FDG The route of agent administration: Intravenous FASTING BLOOD SUGAR: 98 mg/dl CONTRAST TYPE AND DOSE: No CT contrast given. TECHNIQUE: Blood glucose level was verified. Above dose of FDG was injected intravenously. 2-D seg mented attenuation correction images were obtained from the base of the skull to the midthighs. Nonc ontrast CT images were obtained for attenuation correction and fusion with emission images. CT image s were performed without oral or intravenous contrast and are not sensitive for parenchymal lesions. A series of overlapping emission PET images were obtained. Images reviewed and manipulated at [facility] work station by the radiologist. Images stored on PACS. LIMITATIONS: None. FINDINGS: HEAD AND NECK: No areas of abnormal metabolic activity in the soft tissues of the head and neck. CHEST: No areas of abnormal metabolic activity in the chest. ABDOMEN AND PELVIS: Previously seen retroperitoneal and iliac adenopathy has resolved. No demonstrab le lymph nodes on CT and no areas of abnormal metabolic activity. Right inguinal adenopathy also has improved considerably. Majority of the previously seen enlarged lymph nodes now measure less than 1 cm and demonstrate no abnormal activity. There is a residual lymph node versus conglomerate of lymp h nodes currently measuring 1.7 x 2.3 cm with prior measurement of 1.7 x 4 cm. Current mean SUV valu e 2.23 with prior value 5.5 and 7.5 cm. No other areas of abnormal metabolic activity in the abdomen or pelvis. Expected physiologic activity is present in the genitourinary system and bowel. PROXIMAL LOWER EXTREMITIES: No areas of abnormal metabolic activity in the soft tissues of the lower extremities. BONES: No abnormal metabolic activity in the visualized skeleton. ADDITIONAL CT FINDINGS: No additional significant findings on the noncontrast CT images. OTHER: Background blood pool activity mean SUV value 1.32. Background liver activity mean SUV value 1.92. IMPRESSION: FAVORABLE RESPONSE TO TREATMENT. PREVIOUSLY SEEN ADENOPATHY AND METABOLICALLY ACTIVE LY MPH NODES IN THE CHEST, ABDOMEN, AND PELVIS HAVE RESOLVED WITH NO ENLARGED LYMPH NODES ON CT AND NO D EMONSTRABLE ACTIVITY ON PET IMAGING. ALSO MARKED IMPROVEMENT IN THE RIGHT INGUINAL ADENOPATHY MAIN CRIBED ABOVE. TECHNICAL DOCUMENTATION: JOB ID: [id number] [email or web address]- All Rights Reserved Reading location - IP/workstation name: [email or web address]-2
== END ==
LOC: RAD 16:06
PROVIDERS: ATTEND Internal Medicine
DX: C90.00 Multiple myeloma not having achieved remission (principal)
CPT/HCPCS: 78815; A9552

== ENCOUNTER → 2017-08-23 | Outpatient (CLI) | payer MEDICAID ==
--- NOTE | 2017-08-23 12:03 | RADIOLOGY REPORT (SQ) ---
EXAM DESCRIPTION: CT ABD/PELVIS WITH IV ONLY COMPLETED DATE/TIME: 08/23/2017 9:40 am REASON FOR STUDY: DIFFUSE LARGE B-CELL LYMPHOMA, INTRA-ABDOMINAL LYMPH NODES C83.33 DIFFUSE LARGE B -CELL LYMPHOMA, INTRA-ABDOMINAL LYMPH COMPARISON: PET-CT 05/23/2017 CT abdomen pelvis 03/03/2017 TECHNIQUE: CT scan of the abdomen and pelvis performed using helical scanning technique with dynamic intravenous contrast injection. No oral contrast. Images reviewed with lung, soft tissue, and bone windows. Reconstructed coronal and sagittal MPR images reviewed. Delayed images for evaluation of the urinary system also acquired. All images stored on PACS. All CT scanners at this facility use dose modulation, iterative reconstruction, and/or weight based d osing when appropriate to reduce radiation dose to as low as reasonably achievable (ALARA). [facility]: Dose Right [facility]: CareDose [facility]: Dose Right [facility]: Teradose 4D [facility]: [employer] CONTRAST TYPE AND DOSE: contrast/concentration: Isovue 370.00 mg/ml; Total Contrast Delivered: 85.0 ml; Total Saline Delivered: 69.0 ml RENAL FUNCTION: None required. The patient is less than 50 years old. RADIATION DOSE: CT Rad equipment meets quality standard of care and radiation dose reduction techniq ues were employed. CTDIvol: 4.4 - 5.1 mGy. DLP: 474 mGy-cm.. LIMITATIONS: None. FINDINGS: LOWER CHEST: No significant findings. No nodules or infiltrates. LIVER: Normal size. No masses. No dilated ducts. SPLEEN: Normal size. No focal lesions. PANCREAS: No masses. No significant calcifications. No adjacent inflammation or peripancreatic fluid collections. Pancreatic duct not dilated. GALLBLADDER: No identified stones by CT criteria. No inflammatory changes to suggest cholecystitis. ADRENAL GLANDS: No significant masses or asymmetry. RIGHT KIDNEY AND URETER: No solid masses. No significant calcifications. No hydronephrosis or hyd roureter. LEFT KIDNEY AND URETER: No solid masses. No significant calcifications. No hydronephrosis or hydr oureter. AORTA AND VESSELS: No aneurysm. No dissection. Renal arteries, SMA, celiac without stenosis. RETROPERITONEUM: No retroperitoneal adenopathy, hemorrhage or masses. BOWEL AND PERITONEAL CAVITY: No masses or inflammatory changes. No free fluid or peritoneal masses. APPENDIX: Not identified. PELVIS: No mass. No free fluid. Normal bladder. ABDOMINAL WALL: No masses. No hernias. BONES: Scoliosis. No significant or acute findings. OTHER: No other significant finding. IMPRESSION: No abdominal or pelvic adenopathy is present. No acute findings are present in the abdo men or pelvis. TECHNICAL DOCUMENTATION: JOB ID: [id number] Quality ID # 436: Final reports with documentation of one or more dose reduction techniques (e.g., Au tomated exposure control, adjustment of the mA and/or kV according to patient size, use of iterative reconstruction technique) 2010 [employer]- All Rights Reserved Reading location - IP/workstation name: [email or web address]
== END ==
LOC: RAD 09:16
PROVIDERS: ATTEND Internal Medicine
DX: C83.33 Diffuse large B-cell lymphoma, intra-abdominal lymph nodes (principal)
CPT/HCPCS: 74177

== ENCOUNTER → 2017-12-22 | Outpatient (CLI) | payer MEDICAID ==
--- NOTE | 2017-12-22 11:18 | RADIOLOGY REPORT (SQ) ---
EXAM DESCRIPTION: CT CHEST WITH; CT ABD/PELVIS WITH IV ONLY COMPLETED DATE/TIME: 12/22/2017 10:42 am; 12/22/2017 10:47 am REASON FOR STUDY: LYMPHOMA C83.33 DIFFUSE LARGE B-CELL LYMPHOMA, INTRA-ABDOMINAL LYMPH COMPARISON: CT abdomen pelvis 08/23/2017 PET-CT 05/23/2017 CT abdomen pelvis 03/03/2017 CONTRAST TYPE AND DOSE: contrast/concentration: Isovue 350.00 mg/ml; Total Contrast Delivered: 85.0 ml; Total Saline Delivered: 69.0 ml RENAL FUNCTION: None required. The patient is less than 50 years old. TECHNIQUE: CT scan of the chest performed using helical scanning technique with dynamic intravenous contrast injection. Images reviewed with lung, soft tissue and bone windows. Reconstructed coronal a nd sagittal MPR images reviewed. All images stored on PACS. CT scan of the abdomen and pelvis performed with intravenous and without oral contrastusing helical s anjana technique with dynamic intravenous contrast injection. Images reviewed with lung, soft tissu e and bone windows. Reconstructed coronal and sagittal MPR images reviewed. Delayed images for eval uation of the urinary system also acquired and evaluated. All images stored on PACS. All CT scanners at this facility use dose modulation, iterative reconstruction, and/or weight based d osing when appropriate to reduce radiation dose to as low as reasonably achievable (ALARA). [facility]: Dose Right [facility]: CareDose [facility]: Dose Right [facility]: Teradose 4D [facility]: [employer] RADIATION DOSE: CT Rad equipment meets quality standard of care and radiation dose reduction techniq ues were employed. CTDIvol: 4.6 - 4.7 mGy. DLP: 711 mGy-cm. . LIMITATIONS: None. FINDINGS: CHEST: LUNGS AND PLEURA: No opacities, nodules, masses. No pneumothorax. No effusions. HILAR AND MEDIASTINAL STRUCTURES: No identified masses or abnormal nodes. HEART AND VASCULAR STRUCTURES: No aneurysm or dissection. No central pulmonary emboli. No pericardi al effusion. HARDWARE: Right permanent central line tip superior vena cava THYROID AND OTHER SOFT TISSUES: No masses. No adenopathy. BONES: No significant finding. OTHER: No other significant finding. ABDOMEN AND PELVIS: LIVER: Normal size. No masses. No dilated ducts. SPLEEN: Normal size. No focal lesions. PANCREAS: No masses. No significant calcifications. No adjacent inflammation or peripancreatic fluid collections. Pancreatic duct not dilated. GALLBLADDER: No identified stones by CT criteria. No inflammatory changes to suggest cholecystitis. ADRENAL GLANDS: No significant masses or asymmetry. RIGHT KIDNEY AND URETER: No solid masses. No significant calcification. No hydronephrosis or hydroure ter. LEFT KIDNEY AND URETER: No solid masses. No significant calcification. No hydronephrosis or hydrouret er. AORTA AND VESSELS: No aneurysm. No dissection. Renal arteries, SMA, celiac without stenosis. RETROPERITONEUM: No retroperitoneal adenopathy, hemorrhage or masses. BOWEL AND PERITONEAL CAVITY: No masses or inflammatory changes. No free fluid or peritoneal masses. APPENDIX: Normal. ABDOMINAL WALL: No masses. No hernias. Specifically, the 4 x 2.5 cm nodule in the right inguinal reg ion seen on 03/11/2017 is no longer identified. PELVIS: No mass or free fluid. Normal bladder. BONES: No significant or acute findings. OTHER: No other significant finding. IMPRESSION: NORMAL CT OF THE CHEST WITH IV CONTRAST. NORMAL CT OF THE ABDOMEN AND PELVIS WITH ORAL AND INTRAVENOUS CONTRAST. TECHNICAL DOCUMENTATION: JOB ID: [id number] Quality ID # [id number]: Final reports with documentation of one or more dose reduction techniques (e.g., Au tomated exposure control, adjustment of the mA and/or kV according to patient size, use of iterative reconstruction technique) 2010 [employer]- All Rights Reserved Reading location - IP/workstation name: [facility]-RR2
== END ==
LOC: RAD 10:42
PROVIDERS: ATTEND Internal Medicine
DX: C83.33 Diffuse large B-cell lymphoma, intra-abdominal lymph nodes (principal)
CPT/HCPCS: 71260; 74177

== ENCOUNTER 2018-02-01 23:46 | Emergency (ER) | payer MEDICAID ==
[2018-02-02] MEDS ORDERED: HYDROMORPHONE HCL INJ/PF 2 MG/ML AMPULE IV ONE (00:37)
--- NOTE | 2018-02-02 00:41 | ER Document Report ---
HPI - HPI Patient complains to provider of: Right lower back pain Onset: This morning Onset/Duration: Gradual Quality of pain: Sharp Pain Level: 3 Context: Patient presents complaining of right lower back pain that started this morning. Patient states he does have a history of chronic back pain and this does feel similar to when he has had flareups in the past. Patient denies any new injury or fever. Patient without any radiculopathy or paresthesia. Associated Symptoms: Other - Right lower back pain. denies: Fever Exacerbated by: Movement Relieved by: Denies Similar symptoms previously: Yes Recently seen / treated by doctor: No - ROS ROS below otherwise negative: Yes Systems Reviewed and Negative: Yes All other systems reviewed and negative - CONSTITUTIONAL Constitutional: DENIES: Fever, Chills - NEURO Neurology: DENIES: Weakness - GASTROINTESTINAL Gastrointestinal: DENIES: Abdominal Pain, Nausea, Patient vomiting - URINARY Urinary: DENIES: Dysuria, Urgency, Frequency - MUSCULOSKELETAL Musculoskeletal: REPORTS: Back Pain - DERM Skin Color: Normal Skin Problems: None <JUNI MENDEZ - Last Filed: 02/02/18 02:12> <JAYNA CHRIS - Last Filed: 02/02/18 02:37> - HPI Time Seen by Provider: 02/02/18 00:21 Past Medical History - General Information source: Patient - Social History Smoking Status: Current Every Day Smoker Chew tobacco use (# tins/day): No Frequency of alcohol use: None Drug Abuse: None Occupation: claims customer service representative Lives with: Family Family History: Reviewed & Not Pertinent, Malignancy - mom breast cancer Patient has suicidal ideation: No Patient has homicidal ideation: No Renal/ Medical History: Denies: Hx Peritoneal Dialysis Malignancy Medical History: Reports Other - Lymphoma Musculoskeletal Medical History: Reports Hx Arthritis - Low back pain, scoliosis Past Surgical History: Reports: Other - Biopsy of lymph nodes in the right inguinal area December 16, 2016 - Immunizations Hx Diphtheria, Pertussis, Tetanus Vaccination: Yes <JUNI MENDEZ - Last Filed: 02/02/18 02:12> Vertical Provider Document - CONSTITUTIONAL Agree With Documented VS: Yes Exam Limitations: No Limitations General Appearance: WD/WN, No Apparent Distress Notes: PHYSICAL EXAMINATION: GENERAL: Very thin, moves guardedly HEAD: Atraumatic, normocephalic. EYES: sclera clear, anicteric, conjunctiva are normal. ENT: nares patent, Moist mucous membranes. NECK: Normal range of motion, supple no lymphadenopathy LUNGS: respirations unlabored HEART: Regular rate and rhythm without murmurs EXTREMITIES: Normal range of motion, no pitting or edema. No cyanosis. Gait normal, pt ambulates without difficulty BACK: Right lumbar paraspinal tenderness, no midline tenderness, no deformities or step-offs. Right CVA tenderness. NEUROLOGICAL: Cranial nerves grossly intact. Normal speech, normal gait. No saddle anesthesia. PSYCH: Normal mood, normal affect. SKIN: Warm, Dry, normal turgor, no rashes or lesions noted. - INFECTION CONTROL TRAVEL OUTSIDE OF THE [place] IN LAST 30 DAYS: No <JUNI MENDEZ - Last Filed: 02/02/18 02:12> Course - Re-evaluation Re-evalutation: 02/02/18 00:38 Patient reports flareup of chronic low back pain. Patient states pain is in location where he has had problems in the past. Patient has been followed by pain management and currently has an active prescription for pain medication. Patient initially states that he did have medication and then stated that he did not have any medication because he has been taking 2 pills a day versus the 1 pill a day that was prescribed. Patient also then stated that he threw the pills out because he had a nerve ablation procedure performed and he thought that he would not need any more pain medications so he got rid of the pills. Patient denies any new injury. Review of narcotic controlled substance database demonstrates that patient should have a current prescription of oxycodone 5 mg tablets that was filled on January 10 for a 30-day supply. 02/02/18 01:[address] Haines regarding patient urinalysis results. Patient did have a CT scan performed last month with IV contrast and no significant calcifications were noticed to the right kidney. Dr. Haines recommends limited CT to eval for stone given a melena hematuria noted on UA. 02/02/18 02:12 Report and handoff given to Jayna Chris IT COORDINATOR - Vital Signs Vital signs: Temp Pulse Resp BP Pulse Ox 98.2 F 74 19 116/61 96 02/01/18 23:52 02/01/18 23:52 02/01/18 23:52 02/01/18 23:52 11/20/18 23:52 - Laboratory Result Diagrams: 02/02/18 01:49 02/02/18 01:49 <JUNI MENDEZ - Last Filed: 02/02/18 02:12> - Re-evaluation Re-evalutation: 02/02/18 02:27 CT is negative for any acute findings. Patient discharged home in stable condition. - Vital Signs Vital signs: Temp Pulse Resp BP Pulse Ox 98.2 F 74 19 116/61 96 02/01/18 23:52 02/01/18 23:52 02/01/18 23:52 02/01/18 23:52 02/01/18 23:52 - Laboratory Result Diagrams: 02/02/18 01:49 02/02/18 01:49 Laboratory results interpreted by me: 02/02/18 02/02/18 00:35 01:49 Plt Count 119 L Lymphocytes % 12.4 L Urine Blood SMALL H <AJYNA CHRIS - Last Filed: 02/02/18 02:37> Discharge <JUNI MENDEZ - Last Filed: 02/02/18 02:12> <JAYNA CHRIS - Last Filed: 02/02/18 02:37> - Discharge Clinical Impression: Lower back pain Qualifiers: Chronicity: unspecified Back pain laterality: right Sciatica presence: without sciatica Qualified Code(s): M54.5 - Low back pain Condition: Stable Disposition: HOME, SELF-CARE Instructions: Ice Packs ([facility]), Low Back Pain ([facility]), Warm Packs ([facility]) Additional Instructions: LOW BACK PAIN: Three out of every four people will have an episode of disabling back pain during their lifetime. Most commonly the pain is due to straining of the muscles and ligaments in the low back. Usual treatment includes: (1) Rest on a firm surface. Avoid lying on your stomach. (2) Ice pack the painful area. After a few days, gentle heat may be used intermittently to relax the area, or ice packs can be continued. (3) Medication may be needed -- muscle relaxers and antiinflammatory medicines are commonly used. (4) As the back improves, exercises are prescribed to strengthen the back and abdominal muscles. Your doctor will advise you on the proper care for your back at each stage in your recovery. You may be better in a few days -- or healing may take several weeks. If new symptoms of a "herniated disc" (radiation of pain, numbness, or tingling down the back of the leg or weakness in the leg) occur, you should be re-examined. Further testing may be necessary. PAIN MEDICATION INJECTION: You have received an injection of a pain medication. You should experience significant pain relief within 45 minutes. If this injection was a narcotic -- it will impair your judgement, slow your reaction time and make you sleepy (as well as relieve your pain). Narcotics also can cause nausea. You should not drive, work with machinery, or perform any task requiring mental alertness until all effects of the medication are gone -- six to eight hours. Do not take any alcohol, or sedatives, and do not take any other medication without checking with your physician. MUSCLE RELAXERS: Muscle relaxing medications are usually prescribed for acute muscle spasm or injury to the neck and back. They are often combined with antiinflammatory pain medication for increased relief. You may stop the muscle relaxer when the pain and stiffness have improved. Start the medication again if spasms recur. Muscle relaxers may cause drowsiness, especially with the first dose. Do not operate machinery or drive while under the effects of the medication. Most muscle relaxers last up to 24 hours. Do not combine the medication with alcohol. ICE PACKS: Apply ice packs frequently against the painful area. Many different schedules are recommended, such as "20 minutes on, 20 minutes off" or "one hour ice, two hours rest." If you need to work, you may need to go longer between ice treatments. You should plan to have the area ice packed AT LEAST one fourth of the time. The ice should be applied over the wrap, tape, or splint, or over a layer of cloth -- not directly against the skin. Some ice bags have a built-in cloth and can be put directly on the skin. WARM PACKS: After approximately two days, apply gentle heat (such as a heating pad or hot water bottle) for about 20 to 30 minutes about every two hours -- at least four times daily. Warmth and elevation will help you make a more rapid recovery , and will ease the pain considerably. Do not use HOT heat, and never apply heat for longer than 30 minutes. The continuous heat can invisibly damage skin and muscles -- even when no burn is seen on the surface. Damaged muscles can make you MORE sore. FOLLOW-UP CARE: If you have been referred to a physician for follow-up care, call the physician s office for an appointment as you were instructed or within the next two days. If you experience worsening or a significant change in your symptoms, notify the physician immediately or return to the Emergency Department at any time for re-evaluation. Please take the muscle relaxers as prescribed. You may take ibuprofen 600 mg every 6 hours for your pain. Please utilize the narcotic pain medications that your pain management provider has prescribed to you. Close follow-up with primary care. Prescriptions: Methocarbamol [Robaxin 500 mg Tablet] 500 mg PO Q6H #16 tablet Forms: Return to Work Referrals: HALLE CASTRO MD [Primary Care Provider] - Follow up as needed
[2018-02-02] MEDS ORDERED: LIDOCAINE 5% (700 MG) TRANSDERMAL ADH..PATCH TP ONE (00:53)
[2018-02-02 01:10] LABS: AMORPHOUS SEDIMENT,URINE TRACE /HPF; APPEARANCE,URINE CLOUDY; BILIRUBIN,URINE NEGATIVE (NEGATIVE); COLOR,URINE YELLOW; GLUCOSE, URINE NEGATIVE (NEGATIVE); KETONES,URINE NEGATIVE (NEGATIVE); LEUKOCYTE ESTERASE,URINE NEGATIVE (NEGATIVE); NITRITE,URINE NEGATIVE (NEGATIVE); PROTEIN,URINE NEGATIVE (NEGATIVE); UROBILINOGEN,URINE NEGATIVE mg/dL (<2.0)
[2018-02-02 02:02] LABS: ABSOLUTE EOSINOPHILS # (AUTO) 0.3 10^3/uL (0.0-0.6); ABSOLUTE LYMPHOCYTES (AUTO) 1.1 10^3/uL (0.5-4.7); ABSOLUTE MONOCYTES (AUTO) 0.7 10^3/uL (0.1-1.4); ABSOLUTE NEUT (AUTO) 6.5 10^3/uL (1.7-8.2); BASOPHILS % (AUTO) 0.5 % (0-2); EOSINOPHILS % (AUTO) 3.4 % (0-6); HEMATOCRIT 43.2 % (37.9-51.0); LYMPHOCYTES % (AUTO) 12.4 % (13-45); MEAN CORPUSCULAR HEMOGLOBIN 32.6 pg (27.0-33.4); MEAN CORPUSCULAR HGB CONC 34.6 g/dL (32.0-36.0); MEAN CORPUSCULAR VOLUME 94 fl (80-97); MONOCYTES % (AUTO) 8.3 % (3-13); PLATELET COUNT 119 10^3/uL (150-450); RED BLOOD COUNT 4.59 10^6/uL (4.35-5.55); RED CELL DISTRIBUTION WIDTH 13.1 % (11.5-14.0); SEGMENTED NEUTROPHILS % (AUTO) 75.4 % (42-78); TOTAL CELLS COUNTED % (AUTO) 100 %; WHITE BLOOD COUNT 8.6 10^3/uL (4.0-10.5)
[2018-02-02 02:15] LABS: ANION GAP 9 (5-19); BLOOD UREA NITROGEN 16 mg/dL (7-20); CALCIUM 9.4 mg/dL (8.4-10.2); CARBON DIOXIDE 28 mmol/L (22-30); CHLORIDE 105 mmol/L (98-107); GLUCOSE 106 mg/dL (75-110); POTASSIUM 4.8 mmol/L (3.6-5.0); SODIUM 142.2 mmol/L (137-145)
--- NOTE | 2018-02-02 02:20 | RADIOLOGY REPORT (SQ) ---
EXAM DESCRIPTION: CT ABDOMEN WITHOUT IV CONTRAST COMPLETED DATE/TME: 02/02/2018 01:32 CLINICAL HISTORY: 37 years Male, r flank pain, hematuria Comparison: None. Technique: No contrast. Coronal and sagittal reformat. This exam was performed according to our departmental dose-optimization program, which includes automated exposure control, adjustment of the mA and/or kV according to patient size and/or use of iterative reconstruction technique.[facility]: Dose Right [facility]: CareDose [facility]: Dose Right [facility]: Teradose 4D [facility]: [employer] LIMITATIONS: None Findings: No ascites. No pneumoperitoneum. No hydronephrosis or hydroureter. No renal/ureteral stone discerned. No bowel obstruction. No evidence of appendicitis. Appendix not definitively discerned. Atherosclerosis. Degenerative disc disease. Moderate lumbar dextroconvexity. Unenhanced lower thorax, abdominopelvic structures, and musculoskeleton appear otherwise grossly unremarkable. Impression: No acute findings.
[2018-02-02 02:49] VITALS: BP 104/49
== END 2018-02-02 02:48 | disposition home or self-care (01) ==
LOC: ER 23:46
DX: G89.29 Other chronic pain (principal); M54.5 Low back pain; R31.9 Hematuria, unspecified; K92.1 Melena; F17.200 Nicotine dependence, unspecified, uncomplicated; Z85.72 Personal history of non-Hodgkin lymphomas
CPT/HCPCS: 99284; 96374; 36415; 85025; 80048; 81001; 76380; J1170; J3490

== ENCOUNTER → 2018-04-13 | Outpatient (CLI) | payer MEDICAID ==
--- NOTE | 2018-04-13 14:39 | RADIOLOGY REPORT (SQ) ---
EXAM DESCRIPTION: CT SOFT TISSUE NECK WITH COMPLETED DATE/TIME: 04/13/2018 1:33 pm REASON FOR STUDY: C83.33 DIFFUSE LARGE B-CELL LYMPHOMA, INTRA-ABDOMINAL LYMPH NODES C83.33 DIFFUSE LARGE B-CELL LYMPHOMA, INTRA-ABDOMINAL LYMPH COMPARISON: PET-CT 12/06/2016, 05/23/2017 CT chest abdomen pelvis same date TECHNIQUE: Post IV contrasted scanning from skull base through lung apices with review of bone, soft tissue and lung windows. Reconstructed coronal and sagittal MPR images reviewed. All images stored on PACS. All CT scanners at this facility use dose modulation, iterative reconstruction, and/or weight based d osing when appropriate to reduce radiation dose to as low as reasonably achievable (ALARA). [facility]: Dose Right [facility]: CareDose [facility]: Dose Right [facility]: Teradose 4D [facility]: [employer]olve CONTRAST TYPE AND DOSE: 88 mL of IV Omnipaque 350- low osmolar. RENAL FUNCTION: Creatinine 0.8 RADIATION DOSE: 9.7 mGy . LIMITATIONS: None FINDINGS: SKULL BASE: Inferior brain parenchyma in the field of view unremarkable. MAJOR SALIVARY GLANDS: No solid or cystic masses. No inflammatory changes. LYMPHADENOPATHY: A 1.5 x 1 cm jugulodigastric lymph node is present in the right neck on axial image 38, new compared to previous studies. There are multiple 1 cm short axis right level 3, level 4, and level 5 cervical lymph nodes new compared to prior PET-CT exams worrisome for recurrent lymphoma. MUCOSAL MASSES OR ASYMMETRY: No mucosal masses or asymmetry. LARYNX/CORDS: No abnormal findings. VASCULAR STRUCTURES: The major vessels are patent. LUNG APICES: Clear. BONES: Intact. THYROID: Normal size. No masses. PARANASAL SINUSES: Opacified bilateral ethmoid air cells. Paranasal sinuses the field of view otherw ise unremarkable OTHER: Right-sided permanent central line tip in the superior vena cava. IMPRESSION: Multiple 1 cm short axis level 3, level 4, and level 5 right cervical lymph nodes worris ome for lymphoma recurrence TECHNICAL DOCUMENTATION: JOB ID: [id number] Quality ID # [id number]: Final reports with documentation of one or more dose reduction techniques (e.g., Au tomated exposure control, adjustment of the mA and/or kV according to patient size, use of iterative reconstruction technique) 2010 [employer]- All Rights Reserved Reading location - IP/workstation name: [email or web address]
--- NOTE | 2018-04-13 14:44 | RADIOLOGY REPORT (SQ) ---
EXAM DESCRIPTION: CT CHEST WITH; CT ABD/PELVIS WITH IV ONLY COMPLETED DATE/TIME: 04/13/2018 1:33 pm REASON FOR STUDY: C83.33 DIFFUSE LARGE B-CELL LYMPHOMA, INTRA-ABDOMINAL LYMPH NODES C83.33 DIFFUSE LARGE B-CELL LYMPHOMA, INTRA-ABDOMINAL LYMPH COMPARISON: CT chest abdomen pelvis 03/03/2017, 12/22/2017 PET-CT 05/23/2017, 12/06/2016 CONTRAST TYPE AND DOSE: contrast/concentration: Isovue 350.00 mg/ml; Total Contrast Delivered: 88.0 ml; Total Saline Delivered: 70.0 ml RENAL FUNCTION: GFR > 60. TECHNIQUE: CT scan of the chest performed using helical scanning technique with dynamic intravenous contrast injection. Images reviewed with lung, soft tissue and bone windows. Reconstructed coronal a nd sagittal MPR images reviewed. All images stored on PACS. CT scan of the abdomen and pelvis performed with intravenous and without oral contrastusing helical s anjana technique with dynamic intravenous contrast injection. Images reviewed with lung, soft tissu e and bone windows. Reconstructed coronal and sagittal MPR images reviewed. Delayed images for eval uation of the urinary system also acquired and evaluated. All images stored on PACS. All CT scanners at this facility use dose modulation, iterative reconstruction, and/or weight based d osing when appropriate to reduce radiation dose to as low as reasonably achievable (ALARA). [facility]: Dose Right [facility]: CareDose [facility]: Dose Right [facility]: Teradose 4D [facility]: [employer] RADIATION DOSE: 33 mGy . LIMITATIONS: None. FINDINGS: CHEST: LUNGS AND PLEURA: No opacities, nodules, masses. No pneumothorax. No effusions. HILAR AND MEDIASTINAL STRUCTURES: No identified masses or abnormal nodes. HEART AND VASCULAR STRUCTURES: No aneurysm or dissection. No central pulmonary emboli. No pericardi al effusion. HARDWARE: None. THYROID AND OTHER SOFT TISSUES: No masses. No adenopathy. BONES: No significant finding. OTHER: No other significant finding. ABDOMEN AND PELVIS: LIVER: Normal size. No masses. No dilated ducts. SPLEEN: Normal size. No focal lesions. PANCREAS: No masses. No significant calcifications. No adjacent inflammation or peripancreatic fluid collections. Pancreatic duct not dilated. GALLBLADDER: No identified stones by CT criteria. No inflammatory changes to suggest cholecystitis. ADRENAL GLANDS: No significant masses or asymmetry. RIGHT KIDNEY AND URETER: No solid masses. No significant calcification. No hydronephrosis or hydroure ter. LEFT KIDNEY AND URETER: No solid masses. No significant calcification. No hydronephrosis or hydrouret er. AORTA AND VESSELS: No aneurysm. No dissection. Renal arteries, SMA, celiac without stenosis. RETROPERITONEUM: No retroperitoneal adenopathy, hemorrhage or masses. BOWEL AND PERITONEAL CAVITY: No masses or inflammatory changes. No free fluid or peritoneal masses. APPENDIX: Normal. ABDOMINAL WALL: No masses. No hernias. PELVIS: No mass or free fluid. Normal bladder. BONES: No significant or acute findings. OTHER: No other significant finding. IMPRESSION: NORMAL CT OF THE CHEST WITH IV CONTRAST. NORMAL CT OF THE ABDOMEN AND PELVIS WITH ORAL AND INTRAVENOUS CONTRAST. TECHNICAL DOCUMENTATION: JOB ID: [id number] Quality ID # [id number]: Final reports with documentation of one or more dose reduction techniques (e.g., Au tomated exposure control, adjustment of the mA and/or kV according to patient size, use of iterative reconstruction technique) 2010 [employer]- All Rights Reserved Reading location - IP/workstation name: [email or web address]
== END ==
LOC: RAD 14:43
PROVIDERS: ATTEND Physician Assistant Medical
DX: C83.33 Diffuse large B-cell lymphoma, intra-abdominal lymph nodes (principal)
CPT/HCPCS: 70491; 71260; 74177

== ENCOUNTER → 2018-04-24 | Outpatient (CLI) | payer MEDICAID ==
--- NOTE | 2018-04-25 10:17 | RADIOLOGY REPORT (SQ) ---
EXAM DESCRIPTION: PET CT SKULL/THIGH COMPLETED DATE/TIME: 04/24/2018 9:06 pm REASON FOR STUDY: LYMPHOMA C83.33 DIFFUSE LARGE B-CELL LYMPHOMA, INTRA-ABDOMINAL LYMPH COMPARISON: 05/23/2017 RADIONUCLIDE AND DOSE: 9.9 mCi F18 FDG The route of agent administration: Intravenous FASTING BLOOD SUGAR: 87 mg/dl CONTRAST TYPE AND DOSE: No CT contrast given. TECHNIQUE: Blood glucose level was verified. Above dose of FDG was injected intravenously. 2-D seg mented attenuation correction images were obtained from the base of the skull to the midthighs. Nonc ontrast CT images were obtained for attenuation correction and fusion with emission images. CT image s were performed without oral or intravenous contrast and are not sensitive for parenchymal lesions. A series of overlapping emission PET images were obtained. Images reviewed and manipulated at [facility] work station by the radiologist. Images stored on PACS. LIMITATIONS: None. FINDINGS: HEAD AND NECK: 10 mm right posterior triangle node just above hyoid measuring 7.9 SUV. Se veral smaller ipsilateral nodes below the hyoid measuring 3.6 SUV. Subcentimeter right supraclavicul ar node 4.5 SUV. CHEST: No areas of abnormal metabolic activity in the chest. ABDOMEN AND PELVIS: No areas of abnormal metabolic activity in the abdomen or pelvis. Expected physi ologic activity is present in the genitourinary system and bowel. PROXIMAL LOWER EXTREMITIES: No areas of abnormal metabolic activity in the soft tissues of the lower extremities. BONES: No abnormal metabolic activity in the visualized skeleton. ADDITIONAL CT FINDINGS: Right-sided port tip in the superior vena cava. OTHER: No other significant findings. IMPRESSION: Small hypermetabolic right cervical lymph nodes. TECHNICAL DOCUMENTATION: JOB ID: [id number] [email or web address]- All Rights Reserved Reading location - IP/workstation name: [email or web address]
== END ==
LOC: RAD 15:52
PROVIDERS: ATTEND Physician Assistant Medical
DX: C90.00 Multiple myeloma not having achieved remission (principal)
CPT/HCPCS: 78815; A9552

== ENCOUNTER 2018-05-04 10:53 | Day surgery (SDC) | payer MEDICAID ==
[2018-05-02 11:02] LABS: HEMATOCRIT 43.2 % (37.9-51.0); MEAN CORPUSCULAR HEMOGLOBIN 32.4 pg (27.0-33.4); MEAN CORPUSCULAR HGB CONC 34.8 g/dL (32.0-36.0); MEAN CORPUSCULAR VOLUME 93 fl (80-97); PLATELET COUNT 130 10^3/uL (150-450); RED BLOOD COUNT 4.64 10^6/uL (4.35-5.55); WHITE BLOOD COUNT 6.8 10^3/uL (4.0-10.5)
[2018-05-02 11:27] LABS: ANION GAP 9 (5-19); BLOOD UREA NITROGEN 11 mg/dL (7-20); CALCIUM 9.8 mg/dL (8.4-10.2); CARBON DIOXIDE 31 mmol/L (22-30); CHLORIDE 104 mmol/L (98-107); GLUCOSE 85 mg/dL (75-110); POTASSIUM 4.6 mmol/L (3.6-5.0); SODIUM 144.3 mmol/L (137-145)
[~2018-05-04 10:53] MED LIST changes: -ACETAMINOPHEN 325 MG TABLET PO PRN; -FENTANYL CITRATE INJ/PF 100 MCG/2 ML AMPUL ONE; +LACTATED RINGERS 1000 ML IV PRN; +LIDOCAINE 0.5% INJ-PF (5 MG/ML) 50 ML SDV SUBCUT PRN; -LIDOCAINE 1%/EPINEPHRINE INJ 20 ML VIAL ONE; -LIDOCAINE 2% INJ-PF (20 MG/ML) 10 ML AMPUL ONE; -MIDAZOLAM 2 MG/2 ML INJ ONE; -PROPOFOL INJ 200 MG/20 ML VIAL IV ONE; -RINGERS SOLUTION,LACTATED 1,000 ML IV PRN
[2018-05-04] MEDS ORDERED: ONDANSETRON HCL INJ/PF 4 MG/2 ML SDV ONE (11:41)
[2018-05-04] MEDS ORDERED: ROCURONIUM BROMIDE INJ 50 MG/5 ML VIAL IV ONE (11:41)
[2018-05-04] MEDS ORDERED: DEXAMETHASONE SOD PHOSPHATE INJ 4 MG/1 ML VIAL ONE (11:41)
[2018-05-04] MEDS ORDERED: SUCCINYLCHOLINE CHLORIDE INJ 200 MG/10 ML VIAL ONE (11:41)
[2018-05-04] MEDS ORDERED: CEFAZOLIN 1 GM/D5W RTU 1 GM/50 ML RTUPB IV ONE (12:00)
[2018-05-04] MEDS ORDERED: LIDOCAINE 1%/EPINEPHRINE INJ 20 ML VIAL ONE (12:47)
[2018-05-04] MEDS ORDERED: MIDAZOLAM 2 MG/2 ML INJ ONE (13:20)
[2018-05-04] MEDS ORDERED: PROPOFOL INJ 200 MG/20 ML VIAL IV ONE (13:20)
[2018-05-04] MEDS ORDERED: FENTANYL CITRATE INJ/PF 100 MCG/2 ML AMPUL ONE (13:20)
[2018-05-04] MEDS ORDERED: HYDROMORPHONE HCL INJ/PF 2 MG/ML AMPULE ONE (13:20)
[2018-05-04] MEDS ORDERED: ACETAMINOPHEN 1,000 MG/100 ML RTUPB IV ONE (13:20)
[2018-05-04] MEDS ORDERED: ONDANSETRON HCL INJ/PF 4 MG/2 ML SDV IV PRN (15:12)
[2018-05-04] MEDS ORDERED: FENTANYL CITRATE INJ/PF 100 MCG/2 ML AMPUL IV PRN ×3 (15:12)
[2018-05-04] MEDS ORDERED: PROMETHAZINE HCL INJ 25 MG/1 ML VIAL IV PRN (15:12)
[2018-05-04] MEDS ORDERED: DIPHENHYDRAMINE HCL 50 MG/ML VIAL IV PRN (15:12)
[2018-05-04] MEDS ORDERED: MORPHINE SULFATE 10 MG/ML INJ IV PRN (15:12)
[2018-05-04] MEDS ORDERED: MEPERIDINE HCL/PF INJ 25 MG/1 ML DISP.SYRIN IV PRN (15:12)
[2018-05-04] MEDS ORDERED: OXYCODONE-ACETAMINOPHEN 5-325 MG TABLET PO PRN (15:58)
--- NOTE | 2018-05-04 15:58 | Discharge Summary ---
Discharge Summary (SDC) - Discharge Final Diagnosis: lymphadenopathy. Date of Surgery: 05/04/18 Discharge Date: 05/04/18 Condition: Stable Forms: ASU Anesthesia D/C Instruction, Discharge POC-Surgical Service Treatment or Instructions: WOUND CARE: You may shower in 24 hours. Do not scrub area. Pat area dry and cover if needed. Leave skin glue intact until it falls away on its own. PAIN MANAGEMENT: You may take Toradol, one pill by mouth every six hours as needed for pain. FOLLOW UP: Follow up at [facility] in 7-10 days. Call clinic sooner with questions/concerns. Referrals: KARI PHILLIPS MD [ACTIVE STAFF] - 05/19/18 1:15 pm Discharge Activity: Balance Activity w/Rest, Walk Frequently Report the Following to Your Physician Immediately: Increase in Pain, Fever over 101 Degrees, Unusual Bleeding, Redness, Swelling, Warmth, Increased Soreness, Drainage-Foul Smelling
--- NOTE | 2018-05-04 16:00 | Operative Report ---
Operative Report DATE OF SURGERY: 05/04/18 PREOPERATIVE DIAGNOSIS: 1. History of B-cell lymphoma status post chemotherapy. 2. New PET positive lymphadenopathy right neck POSTOPERATIVE DIAGNOSIS: Same OPERATION: Open right excisional lymph node biopsy right posterior neck, compartment 5 with ultrasound guidance SURGEON: KARI KIM DANDY OPERATOR: MAHAMED COBB ANESTHESIA: GA TISSUE REMOVED OR ALTERED: one lymph node COMPLICATIONS: None ESTIMATED BLOOD LOSS: Scant INTRAOPERATIVE FINDINGS: See below PROCEDURE: Patient was taken the preop holding area the main operating room where general anesthesia was induced. Patient was placed supine position arms tucked neck and head rotated to the left. The right neck was then prepped and draped in sterile fashion Surgical plan surgical and surgical timeout were conducted. Focused ultrasound of the right neck intraoperatively revealed multiple lymph nodes of the right neck enlarged. These involve primarily the posterior lateral jugular chain; however there were 2 large palpable lymph nodes posterior to this area, compartment 5 right neck. We elected to excise 1 of these lymph nodes. The skin was anesthetized with 1% plain lidocaine. Approximately 2.5 cm incision was made, vertically oriented over the target lymph node. Subcutaneous tissue divided with scissors, and fascia opened with scissors. The underlying lymph node was then dissected out in its entirety, carefully the loo se areolar tissue from enlarged node. Small vascular pedicles x2 were tied off with 4-0 Vicryl suture. Other small bands fixating the node to the surrounding tissue were secured with small clips. The lymph node was sent fresh with appropriate clinical history to pathology. The wound closed in layers with 3-0 Vicryl, and skin closed with Dermabond glue. Patient tolerated the procedure well, extubated, taken to recovery room stable condition. . The physician temporary office assistant, Ms. Wilburn, provided assistance during this case by: Assisting retracting tissue, instillation of local anesthesia and closure of skin incisions.
[2018-05-04 17:33] VITALS: BP 122/70
== END 2018-05-04 17:26 | disposition home or self-care (01) ==
LOC: OROUT 10:53
PROVIDERS: ATTEND Surgery
DX: R59.1 Generalized enlarged lymph nodes (principal); F17.210 Nicotine dependence, cigarettes, uncomplicated; Z79.899 Other long term (current) drug therapy; Z85.72 Personal history of non-Hodgkin lymphomas; Z80.3 Family history of malignant neoplasm of breast
CPT/HCPCS: 36415; 88185 ×15; 88184; 85027; 80048; 88233; 88262; 88305 ×2; 88331 ×2; 38500; J2250; J0690; J3490 ×2; J1100; J1170; J0330; J2405; J2704; J0131; 320; J3010

== ENCOUNTER → 2018-07-31 | Outpatient (CLI) | payer MEDICAID ==
--- NOTE | 2018-08-01 10:24 | RADIOLOGY REPORT (SQ) ---
EXAM DESCRIPTION: PET CT SKULL/THIGH COMPLETED DATE/TIME: 08/01/2018 4:08 am REASON FOR STUDY: (C83.33)DIFFUSE LARGE B-CELL LYMPHOMA, INTRA-ABDOMINAL LYMPH NODES C83.33 DIFFUSE LARGE B-CELL LYMPHOMA, INTRA-ABDOMINAL LYMPH COMPARISON: 04/24/2018 RADIONUCLIDE AND DOSE: 9.5 mCi F18 FDG The route of agent administration: Intravenous FASTING BLOOD SUGAR: 102 mg/dl CONTRAST TYPE AND DOSE: No CT contrast given. TECHNIQUE: Blood glucose level was verified. Above dose of FDG was injected intravenously. 2-D seg mented attenuation correction images were obtained from the base of the skull to the midthighs. Nonc ontrast CT images were obtained for attenuation correction and fusion with emission images. CT image s were performed without oral or intravenous contrast and are not sensitive for parenchymal lesions. A series of overlapping emission PET images were obtained. Images reviewed and manipulated at [facility] work station by the radiologist. Images stored on PACS. LIMITATIONS: None. FINDINGS: HEAD AND NECK: No areas of abnormal metabolic activity in the soft tissues of the head and neck. CHEST: No areas of abnormal metabolic activity in the chest. ABDOMEN AND PELVIS: No areas of abnormal metabolic activity in the abdomen or pelvis. Expected physi ologic activity is present in the genitourinary system and bowel. PROXIMAL LOWER EXTREMITIES: No areas of abnormal metabolic activity in the soft tissues of the lower extremities. BONES: No abnormal metabolic activity in the visualized skeleton. ADDITIONAL CT FINDINGS: Stable position of right-sided port. Nothing acute or change from the prior. OTHER: No other significant findings. IMPRESSION: Favorable response to therapy. No hypermetabolic lymph nodes. TECHNICAL DOCUMENTATION: JOB ID: [id number] [employer]- All Rights Reserved Reading location - IP/workstation name: [email or web address]
== END ==
LOC: RAD 15:46
PROVIDERS: ATTEND Internal Medicine
DX: C83.33 Diffuse large B-cell lymphoma, intra-abdominal lymph nodes (principal)
CPT/HCPCS: 78815; A9552

== ENCOUNTER → 2019-01-19 | Outpatient (CLI) | payer MEDICAID ==
--- NOTE | 2019-01-19 09:17 | RADIOLOGY REPORT (SQ) ---
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 TECHNIQUE: CT scan of the chest performed using helical scanning technique with dynamic intravenous contrast injection. Images reviewed with lung, soft tissue and bone windows. Reconstructed coronal a nd sagittal MPR images reviewed. All images stored on PACS. CT scan of the abdomen and pelvis performed with intravenous and with oral contrastusing helical scan rajwinder technique with dynamic intravenous contrast injection. Images reviewed with lung, soft tissue a nd bone windows. Reconstructed coronal and sagittal MPR images reviewed. Delayed images for evaluat ion of the urinary system also acquired and evaluated. All images stored on PACS. All CT scanners at this facility use dose modulation, iterative reconstruction, and/or weight based d osing when appropriate to reduce radiation dose to as low as reasonably achievable (ALARA). [facility]: Dose Right [facility]: CareDose [facility]: Dose Right [facility]: Teradose 4D [facility]: [employer] RADIATION DOSE: CT Rad equipment meets quality standard of care and radiation dose reduction techniq ues were employed. CTDIvol: 4.8 - 5.0 mGy. DLP: 750 mGy-cm. . LIMITATIONS: None. FINDINGS: CHEST: LUNGS AND PLEURA: No opacities, nodules, masses. Mild paraseptal and centrilobular emphysema. No pn eumothorax. No effusions. HILAR AND MEDIASTINAL STRUCTURES: No identified masses or abnormal nodes. HEART AND VASCULAR STRUCTURES: No aneurysm or dissection. No central pulmonary emboli. No pericardi al effusion. HARDWARE: None. THYROID AND OTHER SOFT TISSUES: No masses. No adenopathy. BONES: No significant finding. OTHER: Right chest port catheter. ABDOMEN AND PELVIS: LIVER: Normal size. No masses. No dilated ducts. SPLEEN: Normal size. No focal lesions. PANCREAS: No masses. No significant calcifications. No adjacent inflammation or peripancreatic fluid collections. Pancreatic duct not dilated. GALLBLADDER: No identified stones by CT criteria. No inflammatory changes to suggest cholecystitis. ADRENAL GLANDS: No significant masses or asymmetry. RIGHT KIDNEY AND URETER: No solid masses. No significant calcification. No hydronephrosis or hydroure ter. LEFT KIDNEY AND URETER: No solid masses. No significant calcification. No hydronephrosis or hydrouret er. AORTA AND VESSELS: No aneurysm. No dissection. Renal arteries, SMA, celiac without stenosis. Scatter ed atherosclerosis. RETROPERITONEUM: No retroperitoneal adenopathy, hemorrhage or masses. BOWEL AND PERITONEAL CAVITY: No masses or inflammatory changes. No free fluid or peritoneal masses. APPENDIX: Normal. ABDOMINAL WALL: No masses. No hernias. PELVIS: No mass or free fluid. Normal bladder. BONES: No significant or acute findings. OTHER: No other significant finding. IMPRESSION: 1. No lymphadenopathy identified in the chest, abdomen, or pelvis. 2. Emphysema. TECHNICAL DOCUMENTATION: JOB ID: [id number] Quality ID # [id number]: Final reports with documentation of one or more dose reduction techniques (e.g., Au tomated exposure control, adjustment of the mA and/or kV according to patient size, use of iterative reconstruction technique) 2010 [employer]- All Rights Reserved Reading location - IP/workstation name: [email or web address]
== END ==
LOC: RAD 08:39
PROVIDERS: ATTEND Internal Medicine
DX: C83.33 Diffuse large B-cell lymphoma, intra-abdominal lymph nodes (principal); J43.2 Centrilobular emphysema
CPT/HCPCS: 71260; 74177